=== PATIENT | female | born 1985 | race Caucasian/White ===

== ENCOUNTER → 2020-12-17 | Outpatient (CLI) | payer OTHER ==
[~2020-12-17] MED LIST: AUGMENTIN 875-1 EACH PO
== END ==
LOC: KOH-I 08:30
DX: R10.84 Generalized abdominal pain (principal); R10.2 Pelvic and perineal pain
CPT/HCPCS: 76705; 76856

== ENCOUNTER 2020-12-30 15:49 | Observation (INO) | payer OTHER ==
[~2020-12-30] VITALS: Ht 167.6 cm; Wt 81.6 kg
[2020-12-30 16:31] LABS: HEMOGLOBIN 12.8 gm/dl (12.3-15.3); RED BLOOD COUNT 4.44 M/UL (4.00-5.10); WHITE BLOOD COUNT 11.1 K/UL (4.5-11.0)
[2020-12-30 16:57] LABS: BUN/CREATININE RATIO 11 (0-10)
[2020-12-31 03:48] LABS: WHITE BLOOD COUNT 9.6 K/UL (4.5-11.0)
[2020-12-31 03:53] LABS: HEMOGLOBIN 10.8 gm/dl (12.3-15.3); RED BLOOD COUNT 3.85 M/UL (4.00-5.10)
[2020-12-31 04:05] LABS: BUN/CREATININE RATIO 10 (0-10)
[2021-01-01] MEDS ORDERED: AUGMENTIN 875-1 EACH PO ×2 (13:34→14:04)
== END 2021-01-01 14:40 | disposition home or self-care (01) ==
LOC: ER1 15:49 → CDU 18:00 → M/S 18:00
PROVIDERS: Family Medicine; ADMIT Surgery
DX: K57.20 Diverticulitis of large intestine with perforation and abscess without bleeding (principal); E66.9 Obesity, unspecified; Z20.822 Contact with and (suspected) exposure to COVID-19; J45.909 Unspecified asthma, uncomplicated; Z88.0 Allergy status to penicillin
CPT/HCPCS: 36415; 80048; 80053; 81001; 83690; 84703; 85025; 85027; 96374; 96375; 96376; 99285; G0378; J1885; J2543; J7030; Q9967; U0002

== ENCOUNTER → 2021-03-25 | Outpatient (CLI) | payer OTHER | LOC: HEART 5 07:30 | DX: R00.2 Palpitations (principal) ==